=== PATIENT | female | born 1945 | race Caucasian/White ===

== ENCOUNTER 2016-04-03 08:21 | Emergency (ER) | payer OTHER ==
--- NOTE | 2016-04-03 10:18 | ED NURSING NOTES ---
Clinical Report - Nurses [facility] [address] [place] [address] 04/03/2016 8:21 [id number] TRI[facility] Triage time 08:41. Acuity: LEVEL 4. Chief Complaint: COUGH and SORE THROAT and possible FLU EXPOSURE. 08:41 04/03/16. 08:41 04/03/16. Alert. No acute distress. --08:44 Servando Wise R.N. 08:41 04/03/16. BP: 170/90. HR: 70. RR: 12. O2 saturation: 98% on room air. Temp: 98.3 F (oral). --08:44 Servando Wise R.N. Weight: 62.5 kg stated. Height/Length: 64 inches Per Patient. BMI: 23.7. --08:42 Servando Wise R.N. Medications None. --08:43 Servando Wise R.N. Medication/allergy information source: the patient. --08:44 Servando Wise R.N. Allergies None. --08:43 Servando Wise R.N. History Arrived by private vehicle. Historian: patient. Unaccompanied. Primary physician (CHANG ANDREA). 08:41 04/03/16. No recent travel. 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 PAST MEDICAL HX: Immunizations: up-to-date. SOCIAL HX: Never smoker. Alcohol use; consumes one wine daily. No recent travel. She has had contact with a sick friend. ABUSE ASSESSMENT: No report of abuse. --08:44 Servando Wise R.N. FALL RISK ASSESSMENT: Fall risk assessment completed. No fall risk identified. NUTRITIONAL RISK ASSESSMENT: The nutritional risk assessment revealed no deficiencies. FUNCTIONAL ASSESSMENT: Functional assessment: no impairments noted. LEARNING NEEDS ASSESSMENT: The learning needs assessment revealed no barriers. SKIN INTEGRITY ASSESSMENT: Skin integrity risk assessment completed. No skin integrity risk identified. --08:44 Servando Wise R.N. PROBLEMS: Hypertension. --08:43 Servando Wise R.N. ADDITIONAL SURGERIES: Gallbladder Surgery. --08:43 Servando Wise R.N. Assessment 08:41 04/03/16. --08:44 Servando Wise R.N. Interventions 08:41 04/03/16. 08:41 04/03/16. ID and allergy band on patient. To treatment room. --08:44 Servando Wise R.N. Precautions initiated (Pt is masked due to cough). --08:45 Servando Wise R.N. PHYSICAL ASSESSMENT 08:44 04/03/16. GENERAL / NEURO / PSYCH: Alert. Oriented X 4. Appears in no acute distress. RESPIRATORY: Respirations not labored. CVS: Capillary refill less than 2 seconds. SKIN: Skin is warm and dry. --08:44 Servando Wise R.N. 08:46 04/03/16. RESPIRATORY: Cough productive of sputum. --08:46 Servando Wise R.N. NURSING PROGRESS NOTES 08:44 04/03/16. The plan of care for this patient has been created. Patient gowned. Head of bed elevated. Two patient identifiers checked. Call light placed in reach. Side rails up x 2. Bed placed in lowest position. Brakes of bed on. Brakes of chair on. Patient ready for evaluation- chart flagged and notification provided. --08:44 Servando Wise R.N. 08:51 04/03/16. Patient ID band checked for patient name and birthdate: patient confirmed. Flu swab obtained by RN via nasal pharyngeal swab. Labeled in the presence of the patient and sent to lab. --08:51 Servando Wise R.N. 09:20 04/03/16. Influenza A postive. ED physician notifed of critical value. --09:20 Servando Wise R.N. 09:55 04/03/16. Patient informed about reason for wait and about plan of care. --09:55 Servando Wise R.N. 10:07 04/03/16. --10:07 Servando Wise R.N. 10:06 04/03/16. BP: 166/88. HR: 82. RR: 14. O2 saturation: 99% on room air. --10:07 Servando Wise R.N. DISPOSITION / DISCHARGE 10:23 04/03/16. Condition at departure: improved. The goals identified in the patient's plan of care were met. No learning barriers present. Discharge instructions provided and reviewed with the patient. Reviewed warnings. Reviewed medication(s). Treatments reviewed. Patient verbalized understanding. Written instructions provided in Divehi. The patient was discharged by the physician. She was discharged home and accompanied by family. She left the Emergency Department ambulatory and via private vehicle. Family member driving. FALL RISK ASSESSMENT: Fall risk assessment completed. No fall risk identified. --10:23 Servando Wise R.N. 10:22 04/03/16. BP: 171/88. HR: 80. RR: 12. O2 saturation: 99% on room air. Temp: 98.1 F (oral). --10:23 Servando Wise R.N. 10:23 04/03/16. Departure time: 10:23. --10:23 Servando Wise R.N. Locked/Released at 04/03/2016 11:52 by Servando Wise R.N.
--- NOTE | 2016-04-03 10:18 | ED ORDER SUMMARY ---
..... Patient: SHELLY DOUGLAS OrderSheet [facility] VisitID: [id number] [address] [address] 71y, F Registration Date/Time: 04/03/2016 ORDER SHEET Weight: 62.5 kg (stated) Allergies: None GENERAL ORDERS: Rapid Influenza Screen (Nasal Pharyngeal) (...) Urgent (08:48 04/03/2016 Patricia Benitez) (Ack 8:55 Zulema) (9:37 Justin Mcmahon) MEDICATION ORDERS: IV FLUIDS: ORDER SHEET NOTES: [Electronically signed by Servando Wise R.N. (11:52 04/03/2016)] [Electronically signed by Darren Ireland MD (16:40 04/03/2016)] [Electronically locked/signed by Servando Wise R.N. (11:52 04/03/2016)]
--- NOTE | 2016-04-03 10:18 | ED CLINICAL REPORT ---
Clinical Report - Physicians/Mid Levels [facility] [address] [address] 04/03/2016 8:21 Patient: SHELLY DOUGLAS Time Seen: 09:24 Apr 03 2016. Arrived- By private vehicle. Historian- patient. CPT: ER phys charges level 3 (#565260). HISTORY OF PRESENT ILLNESS Chief Complaint: COUGH, MUSCLE ACHES and "FLU". This started yesterday Exposed to an influenza positive neighbor. and is still present. The illness is described as moderate. The patient has had sputum production, a cough, mild difficulty breathing . The patient has also had wheezing and muscle aches. No chest discomfort or pain, fever or chills. (Did have her flu shot.). Additional history - The patient has had contact with a sick friend with confirmed type A "flu". Similar symptoms previously: None. Recent medical care: Not recently seen/assessed. REVIEW OF SYSTEMS No headache, nausea, vomiting, diarrhea or abdominal pain. No pedal edema, calf pain, difficulty with urination, skin rash or enlarged lymph nodes. No joint pain. All systems otherwise negative, except as recorded above. PAST HISTORY Hypertension. Gallbladder Surgery. SOCIAL HISTORY Never smoker. Occasional alcohol use. ADDITIONAL NOTES The nursing notes have been reviewed. PHYSICAL EXAM Vital Signs: 04/03/2016 08:41 BP: 170/90. HR: 70. RR: 12. O2 saturation: 98%. Temp: 98.3 F. Appearance: Alert. Patient in mild distress. Eyes: Pupils equal, round and reactive to light. Eyes normal inspection. ENT: Ears normal. Nose normal. Pharynx normal. Uvula midline. Neck: Normal inspection. Neck supple. CVS: Normal heart rate and rhythm. Heart sounds normal. Pulses normal. Respiratory: No respiratory distress. Breath sounds normal. Abdomen: Soft and nontender. Back: Normal inspection. Skin: Skin warm. Normal skin color. No rash. Extremities: Extremities exhibit normal ROM. No calf tenderness. No lower extremity edema. Neuro: Oriented X 3. No motor deficit. No sensory deficit. LABS, X-RAYS, AND EKG Laboratory Tests: Rapid Influenza Screen: (PATIENCE: 04/03/2016 08:45) ( MsgRcvd 04/03/2016 09:18) Final results SPECIMEN DESCRIPTION: ... Test Result Flag Units (Reference) RAPID INFLUENZA SCREEN CALLED TO: WILLIAN BROWNE RN -- DATE: 04/03/16 INFLUENZA A: POSITIVE SCREEN FOR INFLUENZA A INFLUENZA B: NEGATIVE SCREEN FOR INFLUENZA B . PROGRESS AND PROCEDURES Patient/family counseled. Disposition: Discharged in stable condition. CLINICAL IMPRESSION Influenza type A with upper respiratory infection. INSTRUCTIONS No strenuous activity. Rest. Drink plenty of fluids. Warnings: Further evaluation is necessary. GENERAL WARNINGS: Return or contact your physician immediately if your condition worsens or changes unexpectedly, if not improving as expected, or if other problems arise. Prescription Medications: Tamiflu 75 mg: take 1 capsule orally every 12 hours for 5 days. Dispense ten (10). No refills. Substitution is permissible. Follow-up: Follow up with your doctor in one week if not better. (Electronically signed by Darren Ireland MD 04/03/2016 16:40)
--- NOTE | 2016-04-03 10:18 | ED NURSING NOTES ---
Clinical Report - Nurses [facility] [address] [place] [address] 04/03/2016 8:21 [id number] TRI[facility] Triage time 08:41. Acuity: LEVEL 4. Chief Complaint: COUGH and SORE THROAT and possible FLU EXPOSURE. 08:41 04/03/16. 08:41 04/03/16. Alert. No acute distress. --08:44 Servando Wise R.N. 08:41 04/03/16. BP: 170/90. HR: 70. RR: 12. O2 saturation: 98% on room air. Temp: 98.3 F (oral). --08:44 Servando Wise R.N. Weight: 62.5 kg stated. Height/Length: 64 inches Per Patient. BMI: 23.7. --08:42 Servando Wise R.N. Medications None. --08:43 Servando Wise R.N. Medication/allergy information source: the patient. --08:44 Servando Wise R.N. Allergies None. --08:43 Servando Wise R.N. History Arrived by private vehicle. Historian: patient. Unaccompanied. Primary physician (CHANG ANDREA). 08:41 04/03/16. No recent travel. 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 PAST MEDICAL HX: Immunizations: up-to-date. SOCIAL HX: Never smoker. Alcohol use; consumes one wine daily. No recent travel. She has had contact with a sick friend. ABUSE ASSESSMENT: No report of abuse. --08:44 Servando Wise R.N. FALL RISK ASSESSMENT: Fall risk assessment completed. No fall risk identified. NUTRITIONAL RISK ASSESSMENT: The nutritional risk assessment revealed no deficiencies. FUNCTIONAL ASSESSMENT: Functional assessment: no impairments noted. LEARNING NEEDS ASSESSMENT: The learning needs assessment revealed no barriers. SKIN INTEGRITY ASSESSMENT: Skin integrity risk assessment completed. No skin integrity risk identified. --08:44 Servando Wise R.N. PROBLEMS: Hypertension. --08:43 Servando Wise R.N. ADDITIONAL SURGERIES: Gallbladder Surgery. --08:43 Servando Wise R.N. Assessment 08:41 04/03/16. --08:44 Servando Wise R.N. Interventions 08:41 04/03/16. 08:41 04/03/16. ID and allergy band on patient. To treatment room. --08:44 Servando Wise R.N. Precautions initiated (Pt is masked due to cough). --08:45 Servando Wise R.N. PHYSICAL ASSESSMENT 08:44 04/03/16. GENERAL / NEURO / PSYCH: Alert. Oriented X 4. Appears in no acute distress. RESPIRATORY: Respirations not labored. CVS: Capillary refill less than 2 seconds. SKIN: Skin is warm and dry. --08:44 Servando Wise R.N. 08:46 04/03/16. RESPIRATORY: Cough productive of sputum. --08:46 Servando Wise R.N. NURSING PROGRESS NOTES 08:44 04/03/16. The plan of care for this patient has been created. Patient gowned. Head of bed elevated. Two patient identifiers checked. Call light placed in reach. Side rails up x 2. Bed placed in lowest position. Brakes of bed on. Brakes of chair on. Patient ready for evaluation- chart flagged and notification provided. --08:44 Servando Wise R.N. 08:51 04/03/16. Patient ID band checked for patient name and birthdate: patient confirmed. Flu swab obtained by RN via nasal pharyngeal swab. Labeled in the presence of the patient and sent to lab. --08:51 Servando Wise R.N. 09:20 04/03/16. Influenza A postive. ED physician notifed of critical value. --09:20 Servando Wise R.N. 09:55 04/03/16. Patient informed about reason for wait and about plan of care. --09:55 Servando Wise R.N. 10:07 04/03/16. --10:07 Servando Wise R.N. 10:06 04/03/16. BP: 166/88. HR: 82. RR: 14. O2 saturation: 99% on room air. --10:07 Servando Wise R.N. DISPOSITION / DISCHARGE 10:23 04/03/16. Condition at departure: improved. The goals identified in the patient's plan of care were met. No learning barriers present. Discharge instructions provided and reviewed with the patient. Reviewed warnings. Reviewed medication(s). Treatments reviewed. Patient verbalized understanding. Written instructions provided in Arabic. The patient was discharged by the physician. She was discharged home and accompanied by family. She left the Emergency Department ambulatory and via private vehicle. Family member driving. FALL RISK ASSESSMENT: Fall risk assessment completed. No fall risk identified. --10:23 Servando Wise R.N. 10:22 04/03/16. BP: 171/88. HR: 80. RR: 12. O2 saturation: 99% on room air. Temp: 98.1 F (oral). --10:23 Servando Wise R.N. 10:23 04/03/16. Departure time: 10:23. --10:23 Servando Wise R.N. Locked/Released at 04/03/2016 11:52 by Servando Wise R.N.
--- NOTE | 2016-04-03 10:18 | ED CLINICAL REPORT ---
Clinical Report - Physicians/Mid Levels [facility] [address] [place] [address] 04/03/2016 8:21 Patient: SHELLY DOUGLAS Time Seen: 09:24 Apr 03 2016. Arrived- By private vehicle. Historian- patient. CPT: ER phys charges level 3 (#[id number]). HISTORY OF PRESENT ILLNESS Chief Complaint: COUGH, MUSCLE ACHES and "FLU". This started yesterday Exposed to an influenza positive neighbor. and is still present. The illness is described as moderate. The patient has had sputum production, a cough, mild difficulty breathing . The patient has also had wheezing and muscle aches. No chest discomfort or pain, fever or chills. (Did have her flu shot.). Additional history - The patient has had contact with a sick friend with confirmed type A "flu". Similar symptoms previously: None. Recent medical care: Not recently seen/assessed. REVIEW OF SYSTEMS No headache, nausea, vomiting, diarrhea or abdominal pain. No pedal edema, calf pain, difficulty with urination, skin rash or enlarged lymph nodes. No joint pain. All systems otherwise negative, except as recorded above. PAST HISTORY Hypertension. Gallbladder Surgery. SOCIAL HISTORY Never smoker. Occasional alcohol use. ADDITIONAL NOTES The nursing notes have been reviewed. PHYSICAL EXAM Vital Signs: 04/03/2016 08:41 BP: 170/90. HR: 70. RR: 12. O2 saturation: 98%. Temp: 98.3 F. Appearance: Alert. Patient in mild distress. Eyes: Pupils equal, round and reactive to light. Eyes normal inspection. ENT: Ears normal. Nose normal. Pharynx normal. Uvula midline. Neck: Normal inspection. Neck supple. CVS: Normal heart rate and rhythm. Heart sounds normal. Pulses normal. Respiratory: No respiratory distress. Breath sounds normal. Abdomen: Soft and nontender. Back: Normal inspection. Skin: Skin warm. Normal skin color. No rash. Extremities: Extremities exhibit normal ROM. No calf tenderness. No lower extremity edema. Neuro: Oriented X 3. No motor deficit. No sensory deficit. LABS, X-RAYS, AND EKG Laboratory Tests: Rapid Influenza Screen: (PATIENCE: 04/03/2016 08:45) ( MsgRcvd 04/03/2016 09:18) Final results SPECIMEN DESCRIPTION: ... Test Result Flag Units (Reference) RAPID INFLUENZA SCREEN CALLED TO: WILLIAN BROWNE RN -- DATE: 04/03/16 INFLUENZA A: POSITIVE SCREEN FOR INFLUENZA A INFLUENZA B: NEGATIVE SCREEN FOR INFLUENZA B . PROGRESS AND PROCEDURES Patient/family counseled. Disposition: Discharged in stable condition. CLINICAL IMPRESSION Influenza type A with upper respiratory infection. INSTRUCTIONS No strenuous activity. Rest. Drink plenty of fluids. Warnings: Further evaluation is necessary. GENERAL WARNINGS: Return or contact your physician immediately if your condition worsens or changes unexpectedly, if not improving as expected, or if other problems arise. Prescription Medications: Tamiflu 75 mg: take 1 capsule orally every 12 hours for 5 days. Dispense ten (10). No refills. Substitution is permissible. Follow-up: Follow up with your doctor in one week if not better. (Electronically signed by Darren Ireland MD 04/03/2016 16:40)
--- NOTE | 2016-04-03 10:18 | ED ORDER SUMMARY ---
..... Patient: SHELLY DOUGLAS OrderSheet [facility] VisitID: [id number] [address] [address] 71y, F Registration Date/Time: 04/03/2016 ORDER SHEET Weight: 62.5 kg (stated) Allergies: None GENERAL ORDERS: Rapid Influenza Screen (Nasal Pharyngeal) (...) Urgent (08:48 04/03/2016 Patricia Benitez) (Ack 8:55 Zulema) (9:37 Justin Mcmahon) MEDICATION ORDERS: IV FLUIDS: ORDER SHEET NOTES: [Electronically signed by Servando Wise R.N. (11:52 04/03/2016)] [Electronically signed by Darren Ireland MD (16:40 04/03/2016)] [Electronically locked/signed by Servando Wise R.N. (11:52 04/03/2016)]
--- NOTE | 2016-04-03 16:40 | ED MED RECONCILIATION SUMMARY ---
Patient: SHELLY DOUGLAS Medication Reconciliation Report [facility] VisitID: [id number] [address] [place] [address] 71y, F Registration Date/Time: 04/03/2016 Weight: 62.5 kg Height/Length: 64 in. BMI: 23.7 ALLERGIES: None The patient's Home Medications are listed below: NONE. The source(s) of the original Home Medication information: patient The following Medications were given to the patient in the Emergency Department: None. The following Medications were prescribed to the patient: Tamiflu 75 mg: take 1 capsule orally every 12 hours for 5 days. Dispense ten (10). No refills. Substitution is permissible. -- Darren Ireland MD
--- NOTE | 2016-04-03 16:40 | ED DISCHARGE INSTRUCTIONS ---
Patient: SHELLY DOUGLAS General Instructions [facility] VisitID: [id number] [place] [address] 71y, F Registration Date/Time: 04/03/2016 Influenza type A with upper respiratory infection. INSTRUCTIONS No strenuous activity. Rest. Drink plenty of fluids. Warnings: Further evaluation is necessary. GENERAL WARNINGS: Return or contact your physician immediately if your condition worsens or changes unexpectedly, if not improving as expected, or if other problems arise. Prescription Medications: Tamiflu 75 mg: take 1 capsule orally every 12 hours for 5 days. Dispense ten (10). No refills. Substitution is permissible. Follow-up: Follow up with your doctor in one week if not better. ADDITIONAL INFORMATION Influenza (Adult) Influenza, also called the flu, is a viral illness that affects the air passages of the lungs. It differs from the common cold. It is highly contagious. It may be spread through the air by coughing and sneezing or by direct contact (touching the sick person and then touching your own eyes, nose or mouth). Illness starts 1-3 days after exposure and lasts for 1-2 weeks. Antibiotics are usually not needed unless a complication appears (ear or sinus infection or pneumonia). Symptoms may be mild or severe and can include extreme tiredness (wanting to stay in bed all day), chills, fevers, muscle aching, soreness with eye movement, headache, and a dry, hacking cough. Home Care: Avoid exposure to cigarette smoke (yours or others). Tylenol or ibuprofen (Advil) will help fever, muscle aching, and headache. To avoid risk of liver injury, aspirin should not be used in children and teenagers under 18 with this illness. Nausea and loss of appetite are common. A light diet is recommended. Avoid dehydration by drinking 6-8 glasses of fluids per day (water, sport drinks like Gatorade, soft drinks without caffeine, juices, tea, soup, etc.). Extra fluids will also help loosen secretions in the nose and lungs. [id number] cold medicines will not shorten the duration of the illness but may be helpful for the following symptoms: cough (Robitussin DM); sore throat (Chloraseptic lozenges or spray); nasal and sinus congestion (Actifed or Sudafed). [NOTE: Do not use decongestants if you have high blood pressure.] Stay home until your fever has been gone for at least 24 hours (without the use of fever-reducing medications such as ibuprofen). Follow Up with your doctor or as directed by our staff if you are not improving over the next week. Note: If you are age 65 or older, or if you have chronic asthma or COPD, we recommend a pneumococcal vaccinationevery five years. All adults shouldreceive a yearly influenza vaccination every . Ask your doctor about this. Get Prompt Medical Attention if any of the following occur: Cough with lots of colored sputum (mucus) or blood in your sputum Chest pain, shortness of breath, wheezing, or difficulty breathing Severe headache, face, neck or ear pain New rash Fever of 100.4F (38C) oral or higher, not better with fever medication Confusion, behavior change or seizure Severe weakness or dizziness You have been given the following additional information: Influenza (Adult) No strenuous activity. Rest. (Electronically signed by Darren Ireland MD 04/03/2016 16:40)
--- NOTE | 2016-04-03 16:40 | ED MAR SUMMARY ---
..... Medication Administration Record [facility] [address] [place], [place] [id number] Patient: SHELLY DOUGLAS Visit ID: [id number] 71y, F Weight: 62.5 kg Height/Length: 64 in BMI: 23.7 ALLERGIES: None
--- NOTE | 2016-04-03 16:40 | ED MED RECONCILIATION SUMMARY ---
Patient: SHELLY DOUGLAS Medication Reconciliation Report [facility] VisitID: [id number] [address] [place] [address] 71y, F Registration Date/Time: 04/03/2016 Weight: 62.5 kg Height/Length: 64 in. BMI: 23.7 ALLERGIES: None The patient's Home Medications are listed below: NONE. The source(s) of the original Home Medication information: patient The following Medications were given to the patient in the Emergency Department: None. The following Medications were prescribed to the patient: Tamiflu 75 mg: take 1 capsule orally every 12 hours for 5 days. Dispense ten (10). No refills. Substitution is permissible. -- Darren Ireland MD
--- NOTE | 2016-04-03 16:40 | ED MAR SUMMARY ---
..... Medication Administration Record [facility] [address] [place], [place] [id number] Patient: SHELLY DOUGLAS Visit ID: [id number] 71y, F Weight: 62.5 kg Height/Length: 64 in BMI: 23.7 ALLERGIES: None
== END 2016-04-03 10:23 | disposition home or self-care (01) ==
LOC: ED SRH 08:21
DX: J10.1 Influenza due to other identified influenza virus with other respiratory manifestations (principal); I10 Essential (primary) hypertension
CPT/HCPCS: 91400